=== PATIENT | male | born 1990 | race African-American/Black ===

== ENCOUNTER 2017-04-09 13:41 | Emergency (ER) | payer OTHER ==
[2017-04-09 14:06] VITALS: BP 126/82
[2017-04-09] MEDS ORDERED: Doxycycline 100 MG Cap PO ONE (14:30)
[2017-04-09] MEDS ORDERED: Alum Hydrox/Mag Hydrox/Simeth 30 ML, Lidocaine 2% 15 ML PO ONE ×2 (14:39)
[2017-04-09] MEDS ORDERED: Pantoprazole 40 MG Vial IVPUSH ONE (14:53)
[2017-04-09] MEDS ORDERED: Ondansetron 4 MG/2 ML SDV IVPUSH ONE (14:54)
--- NOTE | 2017-04-09 14:59 | EDM.PDOC ---
ED HPI GENERAL MEDICAL PROBLEM - General Chief Complaint: Abdominal Pain Stated Complaint: STOMACH PAIN AND DIZZINESS Time Seen by Provider: 04/09/17 14:41 Source of Information: Reports: Patient History Limitations: Reports: No Limitations - History of Present Illness INITIAL COMMENTS - FREE TEXT/NARRATIVE: Patient is a 26-year-old male presents ED complaining of epigastric abdominal pain, nausea, vomiting, and diarrhea. patient states last night he had chicken dexter which was above average for spiciness. Went straight to bed. Awoken this morning with epigastric abdominal pain and nauseated.patient states went to lay down concerning, mildly dizzy with nausea. Patient vomited a few times that resolved the dizziness. Symptoms have drastically improved with admission to the ED. He does have a history of GERD and was on Nexium in the past. Pain is localized epigastric region. He's had 2 episodes of diarrhea this morning with no blood present. Girlfriend ate the same food and did not get sick. No recent sick exposures. No history of ingestion of bad or questionable food or recent out of country travel.Has no chest pain, shortness of breath, dizziness, lightheadedness, fever/chills, or additional complaints. Abdominal Pain Score (Numeric/FACES): 5 - Related Data Allergies Allergy/AdvReac Type Severity Reaction Status Date / Time No Known Allergies Allergy Verified 04/09/17 14:01 Home Meds: Home Meds . [No Known Home Meds] 04/09/17 [History] Past Medical History Gastrointestinal History: Reports: GERD - Past Surgical History HEENT Surgical History: Reports: Adenoidectomy, Tonsillectomy Social & Family History - Family History Family Medical History: Noncontributory - Tobacco Use Smoking Status *Q: Never Smoker - Caffeine Use Caffeine Use: Reports: Tea - Recreational Drug Use Recreational Drug Use: No ED ROS GENERAL - Review of Systems Review Of Systems: ROS reveals no pertinent complaints other than HPI. ED EXAM, GI/ABD - Physical Exam Exam: See Below Exam Limited By: No Limitations General Appearance: Alert, WD/WN, No Apparent Distress Ears: Hearing Grossly Normal Nose: Normal Inspection Throat/Mouth: Normal Voice, No Airway Compromise, Other (oral mucosa is moist) Neck: Normal Inspection, Supple Respiratory/Chest: No Respiratory Distress, Lungs Clear, Normal Breath Sounds, Chest Non-Tender Cardiovascular: Normal Peripheral Pulses, Regular Rate, Rhythm, Systolic Murmur (present. Patient states he's had an echocardiogram with benign findings.) GI/Abdominal Exam: Normal Bowel Sounds, Soft, No Organomegaly, No Distention, Tender (epigastric region) Neurological: Alert, Oriented, CN II-XII Intact, Normal Cognition, No Motor/ Sensory Deficits Psychiatric: Normal Affect, Normal Mood Skin Exam: Warm, Dry, Intact, Normal Color Course - Vital Signs Last Recorded V/S: Last Vital Signs Temp 97.4 F 04/09/17 14:01 Pulse 63 04/09/17 14:01 Resp 18 04/09/17 14:01 BP 126/82 04/09/17 14:01 Pulse Ox 99 04/09/17 14:01 - Orders/Labs/Meds Labs: Laboratory Tests 04/09/17 04/09/17 04/09/17 Range/Units 14:35 14:35 14:35 WBC 6.06 (4.23-9.07) K/mm3 RBC 5.54 (4.63-6.08) M/mm3 Hgb 15.0 (13.7-17.5) gm/L Hct 44.5 (40.1-51.0) % MCV 80.3 (79.0-92.2) fl MCH 27.1 (25.7-32.2) pg MCHC 33.7 (32.2-35.5) g/dl RDW Std Deviation 34.6 L (35.1-43.9) fL Plt Count 236 (163-337) K/mm3 MPV 10.6 (9.4-12.3) fl Neut % (Auto) 79.4 H (34.0-67.9) % Lymph % (Auto) 17.0 L (21.8-53.1) % [place] % (Auto) 3.0 L (5.3-12.2) % Eos % (Auto) 0.2 L (0.8-7.0) Baso % (Auto) 0.2 (0.1-1.2) % Neut # (Auto) 4.82 (1.78-5.38) K/mm3 Lymph # (Auto) 1.03 L (1.32-3.57) K/mm3 [place] # (Auto) 0.18 L (0.30-0.82) K/mm3 Eos # (Auto) 0.01 L (0.04-0.54) K/mm3 Baso # (Auto) 0.01 (0.01-0.08) K/mm3 Sodium 140 (136-145) mEq/L Potassium 3.7 (3.5-5.1) mEq/L Chloride 102 (98-107) mEq/L Carbon Dioxide 27 (21-32) mEq/L Anion Gap 14.7 (5-15) BUN 16 (7-18) mg/dL Creatinine 1.2 (0.7-1.3) mg/dL Est Cr Clr Drug Dosing 93.28 mL/min Estimated GFR (MDRD) > 60 (>60) mL/min BUN/Creatinine Ratio 13.3 L (14-18) Glucose 131 H (74-106) mg/dL Calcium 9.8 (8.5-10.1) mg/dL Total Bilirubin 1.2 H (0.2-1.0) mg/dL AST 17 (15-37) U/L ALT 23 (16-63) U/L Alkaline Phosphatase 72 (46-116) U/L C-Reactive Protein < 0.2 (<1.0) mg/dL Total Protein 8.5 H (6.4-8.2) g/dl Albumin 5.0 (3.4-5.0) g/dl Globulin 3.5 gm/dL Albumin/Globulin Ratio 1.4 (1-2) Lipase 128 (73-393) U/L TSH 3rd Generation 1.167 (0.358-3.74) uIU/mL Meds: Medications Discontinued Medications Generic Name Dose Route Start Last Admin Trade Name Freq PRN Reason Stop Dose Admin Al Hydroxide/Mg Hydroxide 30 0 ml 04/09/17 14:39 04/09/17 14:53 ml/ Lidocaine HCl 15 ml PO 04/09/17 14:40 45 ml ONETIME ONE Administration Doxycycline Hyclate 200 mg 04/09/17 14:30 04/09/17 14:54 Vibramycin PO 04/09/17 14:31 Not Given ONETIME ONE Meclizine HCl 25 mg 04/09/17 15:39 04/09/17 15:43 Antivert PO 04/09/17 15:40 25 mg ONETIME ONE Administration Ondansetron HCl 4 mg 04/09/17 14:54 04/09/17 14:57 Zofran IVPUSH 04/09/17 14:55 4 mg ONETIME ONE Administration Pantoprazole Sodium 40 mg 04/09/17 14:53 04/09/17 14:58 Protonix Iv IVPUSH 04/09/17 14:54 40 mg ONETIME ONE Administration - Re-Assessments/Exams Free Text/Narrative Re-Assessment/Exam: Peripheral IV was established with basic lab work obtained. EKG revealed early repolarization pattern with no acute ST changes noted. Chest x-ray will not be obtained since patient denies any chest discomfort or shortness of breath. Pain is isolated to the epigastric region with acid reflux symptoms. GI cocktail ordered, IV Protonix, and Zofran. 04/09/17 15:20 Labs reviewed with no concerning findings. Reassessment, patient states he's feeling much better after the above therapies. Will discharge patient home with instructions as documented. 04/09/17 15:39 Reassessment, GI symptoms have relieved with the above therapies. Prior to discharge patient complained of dizziness with laying backwards. States this is resolved with sitting up. Denies any headache, vision changes, neck discomfort, numbness/tingling, weakness, or any additional complaints. On examination patient has minimal horizontal nystagmus. findings consistent for benign positional vertigo. Patient most likely dislodged otolith with vomiting. Ordered meclizine by mouth. Patient has no complaints with standing. He will utilize [id number] motion sickness medications and/or Benadryl. Departure - Departure Time of Disposition: 15:22 Disposition: Home, Self-Care 01 Condition: Good Clinical Impression: Acute epigastric pain Gastritis Qualifiers: Gastritis type: unspecified gastritis Chronicity: acute Gastritis bleeding: without bleeding Qualified Code(s): K29.00 - Acute gastritis without bleeding Acid reflux Qualifiers: Esophagitis presence: esophagitis presence not specified Qualified Code(s): K21.9 - Gastro-esophageal reflux disease without esophagitis Vomiting Qualifiers: Vomiting type: unspecified Vomiting Intractability: non-intractable Nausea presence: with nausea Qualified Code(s): R11.2 - Nausea with vomiting, unspecified - Discharge Information Instructions: Gastritis, Adult, [id number] Referrals: PCP,None [Primary Care Provider] - Forms: ED Department Discharge, ED Return to Work/School Form Additional Instructions: Take Prilosec 40 mg every a.m. for the next 2 weeks. Thereafter take one tab every a.m. half-hour prior to breakfast. Utilize Zantac in the evening if you develops acid reflux symptoms. No eating or drinking 4 hours within going to bed. Refrain from chocolates, spicy foods, caffeine,or other foods that aggravate symptoms. Follow up with PCP at [facility] for reevaluation in the next 1 wk. In addition suggest following for progression of murmur. Return to the E.D. as needed for any new or worsening symptoms.
== END 2017-04-09 15:44 | disposition home or self-care (01) ==
LOC: JD.ED 13:41
DX: K29.00 Acute gastritis without bleeding (principal); K21.9 Gastro-esophageal reflux disease without esophagitis
CPT/HCPCS: 36415; 80053; 83690; 84443; 85025; 86140; 96374; 96375; 99285; A9270; C9113; J2405; 99284